=== PATIENT | male | born 1990 | race Caucasian/White ===

== ENCOUNTER 2017-11-26 19:27 | Emergency (ER) | payer OTHER, MEDICAID, SELFPAY ==
[2017-11-26 19:28] VITALS: BP 118/69; PULSE 110; RESP 20; TEMP 37.3; O2SAT 95; BMI 22.1
--- NOTE | 2017-11-26 19:46 | EKG12_ITS ---
Test Reason : SEIZURE Blood Pressure : / mmHG Vent. Rate : 092 BPM Atrial Rate : 092 BPM P-R Int : 176 ms QRS Dur : 086 ms QT Int : 350 ms P-R-T Axes : 053 047 045 degrees QTc Int : 432 ms Normal sinus rhythm Normal ECG Confirmed by WHITNEY MONCADA MD ([id number]), subeditor RICH TRAN ([id number]) on 11/28/2017 4:11:43 PM Referred By: RUPAL Confirmed By:WHITNEY MONCADA MD
[2017-11-26] MEDS: levETIRAcetam 1,000 MG Tablet 1000 MG PO (20:05)
--- NOTE | 2017-11-26 20:43 | ED.VISSUMM ---
- ER Visit Summary Date of Service: 11/26/17 Chief Complaint: Seizure History of Present Illness: The patient is a 26 M patient presents with a seizure. He had one tonic-clonic episode today witnessed by bystanders. He states he has a history of seizures and is supposed to be taking Keppra. He is not taking it because I have not had a seizure. He denies any other symptoms. He feels slightly drowsy at this time. Physical Examination: Vital signs reviewed. HEENT exam unremarkable. Heart is regular rate and rhythm without murmurs. Lungs are clear to auscultation. Abdomen is soft and nontender. Extremities reveal no edema. Skin exam normal. Neurologic exam normal. Test Results: EKG is sinus rhythm with no ST changes Emergency Department Course and Treatment: Patient was observed the emergency department without return of seizures. I did give him 1 g of oral Keppra. I will give him a prescription for his regular dose which is 750 mg twice a day. He will need to follow-up with his PCP Treatment Plan: [] Disposition: Discharge Impression: Breakthrough seizure This note was generated with [employer] dictation software. It may contain incorrect words, spelling, and punctuation that were not noted in review of the chart prior to signing ED Disposition - Plan for ED Patient: Chief Complaint: Seizure Referrals: Care Physician,No Primary [Primary Care Provider] -
--- NOTE | 2017-11-26 20:44 | ED.DEP ---
ED Disposition - Plan for ED Patient: Disposition: Home or Assisted Living Chief Complaint: Seizure Instructions: ED Seizure Recurrent Prescriptions: Levetiracetam [Keppra] 750 mg PO BID #60 tab Referrals: Care Physician,No Primary [Primary Care Provider] -
[2017-11-26 20:51] VITALS: BP 107/67; PULSE 85; RESP 20; O2SAT 96
== END 2017-11-26 20:52 | disposition home or self-care (01) ==
PROVIDERS: Emergency Provider Emergency Medicine
DX: G40.909 Epilepsy, unspecified, not intractable, without status epilepticus (principal)
CPT/HCPCS: 93005; 99285; A4216

== ENCOUNTER → 2019-01-01 13:33 | Outpatient (CLI) | payer MEDICAID, SELFPAY ==
--- NOTE | 2019-01-01 14:00 | RAD_ITS ---
STUDY: X-RAY - THORACIC SPINE REASON FOR EXAM: Male, 28 years old. Back pain for 2 years TECHNIQUE: 3 view(s) of the thoracic spine were obtained. COMPARISON: None. FINDINGS: Normal kyphosis of the thoracic spine. There is no substantial scoliosis. Normal thoracic vertebrae and endplates. Normal disc space heights. The soft tissue structures are unremarkable. RAD/Thoracic Spine 2 Views IMPRESSION: Normal x-ray examination of the thoracic spine. Electronically Signed: Ehsan Pope MD at 17:01 EDT , Service support ,
== END ==
PROVIDERS: Referring Provider Chiropractor; Visit Provider Chiropractor
DX: S23.3XXA Sprain of ligaments of thoracic spine, initial encounter (principal)
CPT/HCPCS: 72070

== ENCOUNTER 2019-11-12 23:23 | Emergency (ER) | payer MEDICAID, SELFPAY ==
[2019-11-12 23:24] VITALS: BP 116/56; PULSE 85; RESP 16; TEMP 36.8; O2SAT 98; BMI 19.3
[2019-11-13] MEDS: 0.9% Normal Saline 1,000 ML 1000 ML IV (01:40)
[2019-11-13] MEDS: Ketorolac 30 MG/ML Syringe IV (01:41)
[2019-11-13] MEDS: Ondansetron 4 MG/2 ML Vial IV (01:41)
[2019-11-13 01:45] LABS: Absolute Neutrophil Count 3.3 X10^3/uL (2.0-7.7); Basophil# 0.02 X10^3/uL; Basophil% 0.3 % (0-1); Eosinophil# 0.14 X10^3/uL; Eosinophils% 2.2 % (0-5); Hematocrit 43.1 % (40-54); Hemoglobin 14.7 g/dL (13.0-16.5); Lymphocyte % 35.1 % (19-41); Mean Corp Hgb Conc 34.1 g/dL (32-36); Mean Corpuscular Hgb 32.3 pg (27.0-32.0); Mean Corpuscular Volume 94.7 fL (80-94); Mean Platelet Vol. 11.5 fl (6.2-12.0); Monocyte# 0.65 X10^3/uL; Monocyte% 10.4 % (0-10); NRBC Flagged by Analyzer 0 % (0-5); Neutrophil # 3.25 X10^3/uL (2.7-7.7); Neutrophil % 51.8 % (47-70); Platelet Count 152 K/mm3 (150-450); RBC Distribution Width CV 12.4 % (11.6-14.6); RBC Distribution Width SD 43.2 fl (35.1-43.9); Red Blood Count 4.55 M/mm3 (4.6-6.2); White Blood Count 6.3 K/mm3 (4.4-11.0)
[2019-11-13 01:57] LABS: ALB/GLOB Ratio 1.2 RATIO (0.9-2.4); AST(SGOT) 16 U/L (15-37); Alanine Aminotransfer ALT/SGPT 24 U/L (16-61); Albumin, Serum 3.9 g/dL (3.2-5.0); Alkaline Phosphatase 80 U/L (45-117); Anion Gap 4 (5-15); BUN 14 mg/dL (7-18); BUN/Creat Ratio 15.7 RATIO (10-20); Calcium,Total 8.8 mg/dL (8.5-10.1); Chloride 111 mmol/L (98-107); Creatinine, Serum 0.89 mg/dL (0.70-1.30); EST Glomerular Filtration Rate 107 mL/min (>60); Est Glom Filt Rate - Afr Amer 129 mL/min (>60); Estimated Creatinine Clearance 95.14 ml/min; Globulin 3.2 g/dL (2.2-4.2); Glucose 88 mg/dL (74-106); Lipase 89 U/L (73-393); Protein, Total 7.1 g/dL (6.4-8.2); Sodium Level 141 mmol/L (136-145)
--- NOTE | 2019-11-13 02:04 | ED.VIS.GI ---
History of Present Illness Chief Complaint: Abd Pain Informant: Patient - Abdominal Pain/Flank Pain Onset: Days Context: Gradual Onset Timing: Continuous Quality: Aching Location: Diffuse Worsened by: Food Relieved by: Nothing - Nausea/Vomiting/Emesis GI Symptom: Nausea. Negative for: Vomiting - Diarrhea/Melena/Hematochezia GI Symptom: Negative for: Diarrhea, Melena, Hematochezia Associated Symptoms: Negative for: Dysuria Narrative: Patient is a 28-year-old male with no past medical history presenting with 3 days of abdominal pain. Patient states there has been a significant change. It is diffuse and seems to be worse with eating. He states he has had gagging but is not been vomiting. He is had normal bowel movements. He describes the pain as sharp and aching. The pain does not radiate or localized. He notes his friend had similar symptoms last week and is still having some mild abdominal upset. Patient has not tried any vptb-wya-[id number] medications. He states he came in for symptom control. He denies any other complaints at this time. Past Medical History - Allergies and Home Meds Allergies/Adverse Reactions: Allergies No Known Allergies Allergy (Verified 11/26/17 19:30) Primary Care Physician: Hans Alva MD [STAFF PHYSICIAN] - Past Medical History: None Surgical History: no surgical history Smoking Status: Current every day smoker Alcohol: Occasional Drugs: None Review of Systems General: Denies: Chills, Fever, Sweats Eyes: Denies: Visual changes - bilaterally, Diplopia ENT: Denies: Rhinorrhea, Sore throat Cardiovascular: Denies: Chest pain, Palpitations Respiratory: Denies: Dyspnea, Cough, Dyspnea on exertion Gastrointestinal: Reports: Abdominal pain, Nausea. Denies: Vomiting, Diarrhea, Melena, Hematochezia Genitourinary: Denies: Dysuria, Hematuria, Frequency Musculoskeletal: Denies: Back pain, Extremity Pain Skin: Denies: Rash, Wounds Neurological: Denies: Headache, Weakness, Numbness Physical Exam Vital Signs/Narrative: Vital Signs Temp Pulse Resp BP Pulse Ox 11/12/19 23:24 98.3 F 85 16 116/56 L 98 Inital Vital Signs reviewed: Yes General: Well nourished, Well developed, No Acute Distress Head: Normocephalic, Atraumatic Eyes: Perrl, EOMI ENT: Moist mucous membranes, No rhinorrhea Neck: Supple, Nontender Cardiovascular: Regular rate, Regular rhythm, No murmurs Respiratory: No distress, CTA bilaterally, Chest nontender Abdomen: Soft, Nontender, Nondistended, Hyperactive bowel sounds. Negative for: Guarding, Rebound tenderness Back: Nontender, Normal Inspection. Negative for: CVA tenderness Extremities: Nontender, No edema Skin: Normal color, No rash Neurological: Alert, Oriented x3, Cranial nerves II-XII grossly intact, Normal Strength, Normal Sensation Psychological: Normal affect, Normal Mood Diagnostic/Tx/Re-eval Laboratory Data 11/13/19 11/13/19 01:00 01:00 WBC 6.3 RBC 4.55 L Hgb 14.7 Hct 43.1 MCV 94.7 H MCH 32.3 H MCHC 34.1 RDW Std Deviation 43.2 RDW Coeff of Keri 12.4 Plt Count 152 MPV 11.5 Immature Gran % (Auto) 0.200 Neut % (Auto) 51.8 Lymph % (Auto) 35.1 [place] % (Auto) 10.4 H Eos % (Auto) 2.2 Baso % (Auto) 0.3 Absolute Neuts (auto) 3.3 Absolute Lymphs (auto) 2.20 Nucleated RBC % 0 Sodium 141 Potassium 4.0 Chloride 111 H Carbon Dioxide 26.0 Anion Gap 4 L BUN 14 Creatinine 0.89 Estim Creat Clear Calc 95.14 Est GFR (MDRD) Af Amer 129 Est GFR (MDRD) Non-Af 107 BUN/Creatinine Ratio 15.7 Glucose 88 Calcium 8.8 Total Bilirubin 0.30 AST 16 ALT 24 Alkaline Phosphatase 80 Total Protein 7.1 Albumin 3.9 Globulin 3.2 Albumin/Globulin Ratio 1.2 Lipase 89 - Medical Decision Making Patient evaluated for diffuse abdominal pain. He has had sick contacts with similar symptoms. I suspect this is a self-limited infection that is causing his symptoms. He is well-appearing. He is just looking for symptomatic relief. He is not have tenderness in the right upper quadrant or right lower quadrant. I am not concerned for any acute surgical process. He is not had any prior abdominal surgeries and I am not concerned for small bowel obstruction. He has had normal bowel movements. Patient has a normal CBC, CMP and lipase. Patient is treated symptomatically with IV fluids, Zofran and Toradol. On reevaluation he is feeling much better. He is playing on his phone. Patient is discharged home with Zofran. He is counseled on signs symptoms require return the emergency room. He verbalizes agreement understand this plan. Discharged home in stable condition. ED Disposition - Plan for ED Patient: Disposition: Home or Assisted Living Diagnosis: Abdominal pain of unknown etiology Instructions: ABDOMINAL PAIN, Unkown Cause, (Male) Prescriptions: Ondansetron [Zofran Odt] 4 mg PO Q8H PRN PRN #15 tab PRN Reason: Nausea Prescription Printed Referrals: Hans Alva MD [STAFF PHYSICIAN] - Additional Instructions: Your work-up was normal today. More than likely this is of viral syndrome that is causing her symptoms. Please return emergency room with any worsening symptoms and for reevaluation. You can take [id number] Pepto-Bismol as needed for GI discomfort as well.
[2019-11-13 02:56] VITALS: BP 102/54; PULSE 56; RESP 16; O2SAT 100
[2019-11-13 03:04] VITALS: BP 102/56; PULSE 56; RESP 16; O2SAT 100
== END 2019-11-13 03:06 | disposition home or self-care (01) ==
PROVIDERS: Emergency Provider Emergency Medicine
DX: R10.9 Unspecified abdominal pain (principal); R11.0 Nausea; F17.200 Nicotine dependence, unspecified, uncomplicated
CPT/HCPCS: 80053; 83690; 85025; 96361; 96374; 96375; 99283; J7030; A4216; J2405

== ENCOUNTER 2022-08-22 07:10 | Emergency (ER) | payer BC, SELFPAY ==
[2022-08-22 07:11] VITALS: BP 115/63; PULSE 79; RESP 16; TEMP 36.2; O2SAT 97; BMI 20.9
--- NOTE | 2022-08-22 07:24 | EDS_ITS ---
HPI History of Present Illness Chief Complaint: Back Informant: patient Narrative Narrative: Patient presents with lower back pain. 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 But he does not recall a specific injury. If he stays still the back is not that sore but if he moves or twists it hurts. It is all in the lower back. It does not radiate up or down or into the buttock or legs. He has no bowel or bladder dysfunction. No blood in the urine. No diarrhea incontinence or constipation. No fevers or chills. Again, no specific trauma. PFSH PFSH Home Medications ondansetron 4 mg disintegrating tablet 4 mg PO Q8H PRN PRN Nausea #15 tabs 11/13/19 [Rx Last Taken Unknown] cyclobenzaprine 10 mg tablet 10 mg PO BID PRN muscle spasm #10 tabs 08/22/22 [Rx Last Taken Unknown] naproxen 500 mg tablet (Naprosyn) 500 mg PO BID PRN pain #20 tabs 08/22/22 [Rx Last Taken Unknown] Allergy/AdvReac Type Severity Reaction Status Date / Time No Known Allergies Allergy Verified 11/26/17 19:30 Social History Smoking Status: Current every day smoker ROS [facility] ED Constitutional Constitutional ED: Denies chills or fever(s) Cardiovascular Cardiovascular: Denies chest pain or palpitations Respiratory/Chest Respiratory/Chest: Denies dyspnea or dyspnea on exertion Gastrointestinal Gastrointestinal: Denies abdominal pain, nausea or vomiting Genitourinary Genitourinary ED: Denies dysuria, hematuria or urinary frequency Musculoskeletal Musculoskeletal: Reports back pain Integumentary Denies rash Neurologic Neurologic: Denies paresthesias or weakness Endocrine Endocrinology: Denies polydipsia or polyuria Hematologic/Lymphatic Hematologic/Lymphatic: Denies easy bleeding or easy bruising Allergic/Immunologic Allergic/Immunologic ED: Denies urticaria EXAM Physical Exam Const Vital Signs: 08/22/22 07:11 Temperature 97.2 F L Temperature Source Temporal Pulse Rate 79 Respiratory Rate 16 Blood Pressure 115/63 Blood Pressure Mean 80 Pulse Ox 97 Oxygen Delivery Method Room Air Positive well nourished and well developed Constitutional Narrative: Patient sitting quietly in bed. He looks comfortable sitting but he does have soreness when he gets up to move twist and stand. General Appearance ED: well developed HEENT Reports moist mucous membranes Resp normal respiratory effort and clear to auscultation bilaterally Cardio regular rate and regular rhythm GI normal to inspection, nondistended, normoactive bowel sounds, soft to palpation, non-tender, non-distended and no masses GI Narrative: Normal bowel sounds. Auscultation: Negative for hyperactive bowel sounds Back/Spine normal to inspection Back/Spine Narrative: No skin changes. Patient does have palpable spasm at approximately L2-L4 on the left only. No percussion tenderness in the middle. When I have him twist or move it is sore. His reflexes are slightly reduced but they are equal. But the patient cannot relax his legs so this will limit reflexes. General Back: Negative for CVA tenderness Extremity normal to inspection and no clubbing, cyanosis or edema General Extremety ED: Negative for edema General Extremity: Negative for edema Neuro oriented x3 and no sensory deficits noted Neuro Narrative: Patient can stand on toes heels and has normal quad strength. Deep Tendon Reflexes: Rt Patellar (L4): 1+, Lt Patellar (L4): 1+, Rt Ankle (S1): 1+ and Lt Ankle (S1): 1+ Deep Tendon Reflexes Back: Rt Patellar (L4): 1+, Lt Patellar (L4): 1+, Rt Ankle (S1): 1+ and Lt Ankle (S1): 1+ Psych mental status grossly normal Skin no rashes or lesions noted and no wounds MDM MDM MDM Narrative Medical decision making narrative: Patient has findings consistent with myofascial strain. I do not think x-rays are needed. No indication for blood work. No red flags of back pain. He will be treated with nonsteroidals muscle relaxants and told to use ice rather than the heat that he tried this morning. Discharge Plan Triage Chief Complaint: Back ED Provider: Сергей Blue Dx/Rx/DC Orders Clinical Impression: Acute lumbar myofascial strain Instructions: ED Back Sprain/Strain Prescriptions: New cyclobenzaprine 10 mg tablet 10 mg PO BID PRN (Reason: muscle spasm) Qty: 10 0RF naproxen [Naprosyn] 500 mg tablet 500 mg PO BID PRN (Reason: pain) Qty: 20 0RF No Action ondansetron 4 MG tablet 4 mg PO Q8H PRN PRN (Reason: Nausea) Qty: 15 0RF Primary Care Provider: Care Physician,No Primary Referrals: Jamey Kiser MD [Med Staff - Intern] - 3-5 Days if not improving Care Physician,No Primary [Primary Care Provider] - Disposition Disposition: Home, Self Care
[2022-08-22] MEDS: Naproxen 500 MG Tablet PO (07:44)
== END 2022-08-22 07:45 | disposition home or self-care (01) ==
LOC: ED 07:44
PROVIDERS: Emergency Provider Emergency Medicine; Visit Provider Emergency Medicine
DX: S39.012A Strain of muscle, fascia and tendon of lower back, initial encounter (principal); F17.200 Nicotine dependence, unspecified, uncomplicated; X58.XXXA Exposure to other specified factors, initial encounter
CPT/HCPCS: 99283

== ENCOUNTER → 2022-08-31 | Outpatient (CLI) | payer BC, SELFPAY ==
--- NOTE | 2022-08-31 15:44 | RAD_ITS ---
STUDY: X-RAY - LUMBAR SPINE REASON FOR EXAM: Male, 31 years old. PAIN TECHNIQUE: XR Spine Lumbar Min 4 Views COMPARISON: None FINDINGS: Normal lumbar lordosis. There is no substantial scoliosis. There is a normal alignment of the vertebrae. Normal vertebral bodies and endplates. Normal disc space heights. The soft tissue structures are unremarkable. RAD/L/S Spine Min 4 Views IMPRESSION: There are no acute findings. Electronically Signed: Malik Celaya MD at 16:02 EST ,
== END | disposition home or self-care (01) ==
PROVIDERS: PCP Family Medicine; Referring Provider Family Medicine; Visit Provider Family Medicine
DX: M54.9 Dorsalgia, unspecified (principal)
CPT/HCPCS: 72110

== ENCOUNTER 2022-09-28 10:52 | Emergency (ER) | payer OTHER, BC, SELFPAY ==
[2022-09-28 10:53] VITALS: BP 112/65; PULSE 94; RESP 18; TEMP 36.6; O2SAT 97; BMI 20.1
[2022-09-28 12:37] VITALS: PULSE 82; RESP 16; O2SAT 98
--- NOTE | 2022-09-28 12:49 | EX.ED.UPPERE ---
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 [id number]. No loss of function, but a tendon is exposed. Tetanus Immunization: >10 years PFSH PFSH Medical History Smoker Home Medications cyclobenzaprine 10 mg tablet 10 mg PO BID PRN muscle spasm #10 tabs 08/22/22 [Rx Last Taken Unknown] naproxen 500 mg tablet (Naprosyn) 500 mg PO BID PRN pain #20 tabs 08/22/22 [Rx Last Taken Unknown] cephalexin 500 mg capsule 500 mg PO TID 5 days #15 CAPSULES 09/28/22 [Rx Last Taken Unknown] Allergy/AdvReac Type Severity Reaction Status Date / Time No Known Allergies Allergy Verified 11/26/17 19:30 Social History Smoking Status: Current every day smoker tobacco type: cigarettes ROS ROS ED Constitutional Constitutional ED: Denies chills or fever(s) Musculoskeletal Musculoskeletal: Reports extremity pain; Denies neck pain Integumentary Reports wounds; Denies Abrasions or rash Neurologic Neurologic: Denies paresthesias or weakness EXAM Physical Exam Const Vital Signs: 09/28/22 10:53 09/28/22 12:37 Temperature 98 F Temperature Source Temporal Pulse Rate 94 82 Respiratory Rate 18 16 Blood Pressure 112/65 Blood Pressure Mean 80 Pulse Ox 97 98 Oxygen Delivery Method Room Air Room Air Positive well nourished and well developed General Appearance ED: well developed and NAD Neck full ROM and supple Back/Spine normal ROM and normal to inspection Extremity full ROM Extremity Narrative: Laceration over the MCP J of the right ring finger, full extension intact although the tendon is exposed, normal range of motion throughout the finger and the other fingers. Neuro oriented x3, no focal motor deficits and no sensory deficits noted Sensorium / Orientation: alert Psych mental status grossly normal and thought process normal Skin Skin Narrative: 3 cm full-thickness clean appearing laceration over the right third MCP J with exposure of the extensor tendon, full range of motion including extension, the tendon is inspected throughout the range of the finger, and no injury to the tendon is seen. Flexors are intact. No other lacerations. No active bleeding. Rashes: no rashes MDM MDM MDM Narrative Medical decision making narrative: I do not think x-rays are indicated here, there clearly is no bone involvement he is in no pain, able to move fully, I examined the extensor tendon throughout range of motion of the affected finger and it does not appear to have any even partial injury. He does not have pain with full extension. His tetanus was updated. His wound was repaired, he was given prophylactic antibiotics with the first dose given here, I think his only restriction needs to be wound coverage for his job. Procedures Lacerations Right hand: Length: 3 cm Depth: Tendon (But not involving tendon; subcutaneous/full-thickness laceration) Shape: Linear Prep: Sterile Conditions and Chlorhexadine Laceration repair: Irrigated, Lidocaine (plain 1%), Local (2cc) and Wound explored (No foreign material) Irrigated (ml): 60 Number of Sutures/Theodora: 5 Suture Information: Ethilon, Simple and 5-0 Discharge Plan Triage Chief Complaint: Laceration ED Provider: Mark Anthony Gant Dx/Rx/DC Orders Clinical Impression: Laceration of right hand, Elsisqczta-dmhtzon-wrmmhgugw (DTP) vaccination Instructions: ED Laceration, Hand: All Closures Prescriptions: New cephalexin [cephalexin] 500 mg capsule 500 mg PO TID 5 Days Qty: 15 0RF No Action cyclobenzaprine 10 mg tablet 10 mg PO BID PRN (Reason: muscle spasm) Qty: 10 0RF naproxen [Naprosyn] 500 mg tablet 500 mg PO BID PRN (Reason: pain) Qty: 20 0RF Primary Care Provider: Hans Alva Referrals: [facility] [Group of Physicians] - 10-14 Days suture removal Hans Alva MD [Primary Care Provider] - Disposition Disposition: Home, Self Care
[2022-09-28] MEDS: Diphth,Pertuss(Acell),Tet Vac 0.5 ML Vial IM (13:19)
[2022-09-28] MEDS: Cephalexin 250 MG Capsule 500 MG PO (13:19)
[2022-09-28] MEDS: Lidocaine 1% (20 ml mdv) 20 ML Vial INFILT (13:20)
== END 2022-09-28 17:09 | disposition home or self-care (01) ==
PROVIDERS: Emergency Provider Emergency Medicine; PCP Family Medicine; Visit Provider Emergency Medicine
DX: S61.411A Laceration without foreign body of right hand, initial encounter (principal); Y99.0 Civilian activity done for income or pay; F17.210 Nicotine dependence, cigarettes, uncomplicated; X58.XXXA Exposure to other specified factors, initial encounter; Z23 Encounter for immunization
CPT/HCPCS: 12002; 90715; 99282